=== PATIENT | female | born 1960 | race Caucasian/White ===

== ENCOUNTER → 2018-10-30 12:28 | Outpatient (CLI) | payer MEDICARE, MEDICAID ==
[2013-02-16 13:08] VITALS: BMI 66.2
--- NOTE | ~2018-10-30 | HEMODYNAMI ---
PATIENT:KALANI MONTAGUE MEDICAL RECORD: [id number] : 62 LOCATION:[facility] ADMISSION DATE: 10/30/18 Generatedon:10/30/201814:33 Patient name: KALANI MONTAGUE Patient #: [id number] SSN: : 1960 Date of study: 10/30/2018 Page: Of Hemodynamic Procedure Report Patient Data Patient Demographics Procedure consent was obtained First Name: KALANI Gender: Female Last Name: CLARI : 1960 [facility] Initial: MATTEO Age: 57 year(s) Patient #: [id number] Race: Unknown Additional ID: [id number] Contact details [address]: [address] [place] [address] State: [place] City: [place] Zip code: [address] Past Medical History Allergies: No known allergies Admission Admission Data Admission Date: 10/30/2018 Admission Time: 12:28 Procedure Procedure Types Cath Procedure Peripheral Cath Diagnostic Procedure Miscellaneous Aspiration/Injection (Joint) Procedure Description Procedure Date Procedure Date: 10/30/2018 Procedure Start Time: 14:00 Procedure Staff Name Function Fer Tanner RT Monitor Elmer Gary MD Performing Physician Jeimy Kurtz RN Nurse Procedure Data Cath Procedure Fluoroscopy Diagnostic fluoroscopy Total fluoroscopy Time: 2.8 time: 2.8 min min Diagnostic fluoroscopy Total fluoroscopy dose: 76 dose: 76 mGy mGy Hemodynamics Rest Pre Cath Intra NCS Post Cath Procedure Log Time Note 13:30:30 Fer Tanner RT (R) (CV) sent for patient. Start room use. 13:30:42 Patient received from Outpatients to IR Alert and oriented. Tansferred to table in Supine position. 13:30:43 Correct patient and procedure confirmed by team. 13:30:45 Signed procedure consent form obtained from patient. 13:30:46 Full Disclosure recording started 13:30:48 - 13:30:49 Pre-op teaching completed and patient verbalized understanding. 13:30:49 Pre-procedure instructions explained to patient. 13:36:50 Patient allergic to No known allergies 13:36:57 Is patient on blood thinner?No 13:56:20 Physician arrived 14:00:04 --------ALL STOP TIME OUT------ 14:00:05 Final Timeout: patient, procedure, and site verified with staff and physician. All members of the team are in agreement. 14:00:06 Right groin site verified by team. 14:00:16 Sedation plan: Local Anesthetic Medication:Lidocaine 14:00:25 Procedure started. 14:00:32 Local anesthetic to right groin with Lidocaine 1% by Elmer Gary MD.INITIAL ACCESS ONLY 14:00:56 SAFE-T PLUS MYELOGRAM TRAY opened to sterile field. 14:07:42 CHIBA 22 X 15 needle opened to sterile field. 14:14:33 Procedure ended.(Physican Out) 14:14:45 Fluoroscopy time 02.80 minutes. 14:14:50 Fluoroscopy dose: 76 mGy 14:14:50 Flurop Dose total: 76 14:17:28 Post Right Hip:stable. band aid applied, patient sent home 14:31:09 Full Disclosure recording stopped Device Usage Item Name Manufacture Quantity Catalog Hospital Part Current Minimal Lot# / Number Charge Number Stock Stock Serial# Code SAFE-T [employer] 1 [id number] PLUS MYELOGRAM TRAY CHIBA 22 [facility] 1 [id number] 5 X 15 needle Signature Audit [place] Stage Time Signature Unsigned Intra-Procedure 10/30/2018 Fer 2:33:02 PM Flores RT (R) (CV) Signatures Monitor : Fer Signature : Flores RT Date : Time : [id number] [place] [address]
[~2018-10-30 12:28] MED LIST: CELEXA40 MG PO; CLONAZEPAM0.5 MG/TAB PO; COREG12.5 MG PO; EFFEXOR37.5 MG PO; HYZAAR 50-12.51 TAB PO; LASIX40 MG PO; LEVOTHROID25 MCG PO; MICRO-K10 MEQ PO; MOBIC7.5 MG PO; PERCOCET 10/3251 TA1 PO; PRILOSEC20 MG PO; PROVENTIL HFA6.7 GM INH; TUMS500 MG; ZANTAC150 MG PO; ZOCOR20 MG PO
== END | disposition home or self-care (01) ==
LOC: D.SP 12:28 → D.RAD 13:00
PROVIDERS: ATTEND Orthopaedic Surgery
DX: M16.11 Unilateral primary osteoarthritis, right hip (principal); Z01.812 Encounter for preprocedural laboratory examination

== ENCOUNTER 2019-02-05 15:25 | Emergency (ER) | payer MEDICARE, MEDICAID ==
[~2019-02-05] VITALS: Ht 165.1 cm; Wt 160.0 kg
[2019-02-05 15:53] VITALS: Ht 165.1 cm; Wt 160.0 kg
[2019-02-05] MEDS ORDERED: ULTRAM50 MG PO (17:17)
[2019-02-05 18:01] VITALS: BP 182/99
== END 2019-02-05 18:35 | disposition home or self-care (01) ==
LOC: D.ER 15:25
DX: S93.601A Unspecified sprain of right foot, initial encounter (principal); X58.XXXA Exposure to other specified factors, initial encounter; Y93.89 Activity, other specified; Y92.89 Other specified places as the place of occurrence of the external cause; M79.671 Pain in right foot

== ENCOUNTER 2020-02-05 23:14 | Inpatient (IN) | payer MEDICARE, MEDICAID ==
[~2020-02-05] VITALS: Ht 165.1 cm; Wt 162.4 kg
[~2020-02-05 23:14] MED LIST changes: +ULTRAM50 MG PO
[2020-02-05] MEDS ORDERED: PROZAC20 MG PO (23:28)
[2020-02-05] MEDS ORDERED: SYNTHROID75 MCG PO (23:29)
[2020-02-05] MEDS ORDERED: SYNTHROID50 MCG PO (23:29)
[2020-02-05] MEDS ORDERED: XARELTO10 MG PO (23:30)
[2020-02-05 23:46] LABS: HEMATOCRIT 45.2 % (36.0-48.0); HEMOGLOBIN 13.6 g/dL (12-16); LYMPHOCYTES 11.5 % (15-50); MCH 28.3 pg (26.0-34.0); MCHC 30.1 g/dL (31.0-37.0); MCV 94.2 fL (80.0-100.0); MEAN PLATELET VOLUME 10.3 fL (7.4-10.4); NEUTROPHILS 81.3 % (40-80); PLATELET COUNT 145 10x3/uL (130-400); RDW 15.1 % (11.5-14.5); WBC 5.5 10x3/uL (4.8-10.8)
[2020-02-05 23:55] LABS: APTT 25.9 SECONDS (22.8-39.4); INR 1.06 (0.85-1.17); PROTIME 13.7 SECONDS (11.6-15.0)
[2020-02-06 00:14] LABS: ALBUMIN 2.7 g/dL (3.4-5.0); ALKALINE PHOSPHATASE 51 U/L (30-120); ALT (SGPT) 10 U/L (10-68); BILIRUBIN - TOTAL 0.93 mg/dL (0.2-1.3); CALC OSMOLALITY 287 mosm/kg (275-300); CALCIUM 8.7 mg/dL (8.5-10.1); CARBON DIOXIDE 39.5 mmol/L (21.0-32.0); CHLORIDE - SERUM 104 mmol/L (98-107); CKMB 0.8 U/L (0.0-3.6); CREATINE KINASE 30 UL (21-215); CREATININE - SERUM 0.9 mg/dL (0.6-1.3); GLUCOSE 106 mg/dL (74-106); POTASSIUM - SERUM 4.3 mmol/L (3.5-5.1); PRO BNP 1046 pg/mL (0-125); SODIUM 145 mmol/L (136-145); TROPONIN-I < 0.017 ng/mL (0.000-0.060); UREA NITROGEN 10 mg/dL (7-18); eGFR NON AFRICAN AMERICAN 68 mL/min (90-120)
[2020-02-06 00:28] LABS: C-REACTIVE PROTEIN 0.2 mg/dL (0.0-0.9); MAGNESIUM - SERUM 1.8 mg/dL (1.8-2.4); THYROID STIMULATING HORMONE 3.69 uIU/mL (0.36-3.74); TROPONIN-I 0.018 ng/mL (0.000-0.060)
[2020-02-06 03:41] VITALS: BP 129/99
[2020-02-06 04:22] VITALS: BP 136/64; BMI 59.7
[2020-02-06 07:11] LABS: BILIRUBIN NEGATIVE (NEGATIVE); KETONE SMALL mg/dL (NEGATIVE); NITRITE NEGATIVE (NEGATIVE); UROBILINOGEN NORMAL (NORMAL)
[2020-02-06 07:12] LABS: BACTERIA MANY /hpf (NONE SEEN); WHITE CELLS - URINE 0-5 /hpf (0-5)
[2020-02-06 07:15] LABS: AMORPHOUS SEDIMENT <1+ /lpf (NONE SEEN); URIC ACID CRYSTALS FEW \\hpf (NONE SEEN)
[2020-02-06 09:03] VITALS: BP 120/60
[2020-02-06 12:16] LABS: BASOPHILS 0.2 % (0-2); EOSINOPHILS 1.2 % (0-7); HEMATOCRIT 45.4 % (36.0-48.0); HEMOGLOBIN 13.6 g/dL (12-16); IMMATURE GRANULOCYTES 0.2 % (0-5); LYMPHOCYTES 9.2 % (15-50); MCH 28.7 pg (26.0-34.0); MCV 95.8 fL (80.0-100.0); MEAN PLATELET VOLUME 10.7 fL (7.4-10.4); NEUTROPHILS 82.2 % (40-80); PLATELET COUNT 171 10x3/uL (130-400); RBC 4.74 10x6/uL (4.00-5.40); RDW 15.8 % (11.5-14.5)
--- NOTE | 2020-02-06 12:44 | NUR ---
SPOKE WITH LAB AND THEY STATED THEY WILL USE URINE FROM THIS AM FOR CULTURE.
[2020-02-06 12:53] VITALS: BP 101/52
--- NOTE | 2020-02-06 14:15 | NUR ---
DISPLAY MAKER CALLED AND STATES PT'S HR IS 53 SINUS SIENNA. CALLED AND SPOKE WITH LORRAINE MARROQUIN AND SHE STATES TO PLACE A CARDIOLOGY CONSULT FOR SYMPTOMATIC BRADYCARDIA. I VERBALZIED UNDERSTANDING.
--- NOTE | 2020-02-06 16:30 | NUR ---
PT LYING IN BED. EYES CLSOED. CHEST RISING AND FALLING. BED LOW. CL IN REACH. WILL CONTINUE WITH POC.
[2020-02-06 17:31] VITALS: BP 96/54
--- NOTE | 2020-02-06 19:15 | NUR ---
PATIENT ALERT AND ORIENTED WEARING NASAL CANNULA AT 4L. HOB ELEVATED. CHECKED ROCHE CATHETER BAG, EMPTY. PULLED COVERS BACK AND PATIENT SATURATED WITH URINE. PULLED ROCHE CATHETER AND REPLACED WITH URINE RETURN AND DRAINING INTO BAG. BED BATH PERFORMED. BOUDREAUXS APPLIED TO THIGHS AND OTHER PREVIOUSLY EXCORIATED AREAS (SEE ADMIN ASSESSMENT). PATIENT TOLERATED WELL. DENIES NEEDS AT THIS TIME. CALL LIGHT CLOSE. BED ALARM ON. CPOC.
--- NOTE | 2020-02-06 23:16 | NUR ---
RESTING WITH NO SIGNS OR SYMPTOMS OF DISTRESS. NASAL CANNULA REMAINS ON. RESPIRATORY THERAPIST AWARE THAT PATIENT WEARING CANNULA NOT BIPAP.
[2020-02-06 23:19] VITALS: BP 125/62
[2020-02-07 03:24] VITALS: BP 146/82
[2020-02-07 05:35] LABS: BASOPHILS 0.2 % (0-2); EOSINOPHILS 2.3 % (0-7); HEMATOCRIT 41.5 % (36.0-48.0); HEMOGLOBIN 12.5 g/dL (12-16); LYMPHOCYTES 11.5 % (15-50); MCH 28.5 pg (26.0-34.0); MCHC 30.1 g/dL (31.0-37.0); MCV 94.7 fL (80.0-100.0); MEAN PLATELET VOLUME 10.3 fL (7.4-10.4); PLATELET COUNT 137 10x3/uL (130-400); RBC 4.38 10x6/uL (4.00-5.40); RDW 15.8 % (11.5-14.5); WBC 4.4 10x3/uL (4.8-10.8)
[2020-02-07 06:03] LABS: ALBUMIN 2.3 g/dL (3.4-5.0); ANION GAP 4.9 mmol/L (8-16); BILIRUBIN - TOTAL 0.79 mg/dL (0.2-1.3); CALCIUM 8.3 mg/dL (8.5-10.1); CARBON DIOXIDE 37.9 mmol/L (21.0-32.0); CREATININE - SERUM 0.9 mg/dL (0.6-1.3); MAGNESIUM - SERUM 1.7 mg/dL (1.8-2.4); POTASSIUM - SERUM 3.8 mmol/L (3.5-5.1)
[2020-02-07 06:40] VITALS: BP 121/61
--- NOTE | 2020-02-07 07:10 | NUR ---
RECEIVED PATIENT FROM BRIANA SIGALA. A&O RESTING IN BED WITH EYES OPEN. NO C/O PAIN. NO S/S OF ACUTE DISTRESS NOTED. DENIES ANY NEEDS AT THIS TIME. CALL LIGHT IN REACH. WILL CONTINUE TO MONITOR.
[2020-02-07 09:22] VITALS: BP 121/63
[2020-02-07 09:33] VITALS: Ht 165.1 cm; Wt 162.4 kg
--- NOTE | 2020-02-07 12:35 | NUR ---
OT NOTE: PT IS PUI FOR COVID. WILL AWAIT TEST RESULTS BEFORE EVALUATION. IRMA THOMAS, OTR/L
[2020-02-07 13:05] VITALS: BP 105/57
--- NOTE | 2020-02-07 14:55 | NUR ---
I have reviewed this patient and I concur with the Shift Assessment completed by the Licensed Practical Nurse today this shift.
[2020-02-07 17:54] VITALS: BP 127/69
--- NOTE | 2020-02-07 18:29 | NUR ---
A&O RESTING IN BED WITH EYES OPEN. NO C/O PAIN. NO S/S OF ACUTE DISTRESS NOTED. DENIES ANY NEEDS AT THIS TIME. CALL LIGHT IN REACH. WILL CONTINUE TO MONITOR.
--- NOTE | 2020-02-07 19:00 | NUR ---
PATIENT ALERT AND ORIENTED, HOB ELEVATED, WATCHING TV WHEN ENTERING THE ROOM. PATIENT NOT WEARING BIPAP AT THIS TIME, RT AWARE, PATIENT CURRENTLY WEARING NC AT 4L. PATIENT HAS NON LABORED RESPIRATIONS. ASSESSMENT PERFORMED. ROCHE PATENT AND DRAINING HELEN URINE. ANSWERED PATIENT QUESTIONS. DENIES FURTHER NEEDS AT THIS TIME. CALL LIGHT IS CLOSE. BED ALARM IS ON. CPOC.
[2020-02-07 20:00] VITALS: BP 92/41
--- NOTE | 2020-02-07 22:45 | NUR ---
ANSWERED PATIENT CALL LIGHT. STATES SHE IS GOING TO SLEEP AND WOULD LIKE ASSISTANCE WITH BIPAP. ASSISTED PATIENT. RESTING WITH EXITING THE ROOM. CALL LIGHT CLOSE. BED ALARM ON. CPOC.
[2020-02-08] VITALS: BP 117/59
[2020-02-08 04:00] VITALS: BP 132/70
[2020-02-08 06:43] LABS: BASOPHILS 0.3 % (0-2); EOSINOPHILS 2.2 % (0-7); HEMATOCRIT 40.9 % (36.0-48.0); HEMOGLOBIN 12.3 g/dL (12-16); MCH 28.1 pg (26.0-34.0); MCHC 30.1 g/dL (31.0-37.0); MCV 93.4 fL (80.0-100.0); MEAN PLATELET VOLUME 10.5 fL (7.4-10.4); MONOCYTES 9.2 % (2-11); NEUTROPHILS 69.3 % (40-80); PLATELET COUNT 150 10x3/uL (130-400); RBC 4.38 10x6/uL (4.00-5.40); RDW 16.1 % (11.5-14.5); WBC 3.7 10x3/uL (4.8-10.8)
[2020-02-08 07:02] LABS: ALBUMIN 2.4 g/dL (3.4-5.0); ANION GAP 6.1 mmol/L (8-16); BILIRUBIN - TOTAL 0.54 mg/dL (0.2-1.3); CALCIUM 7.9 mg/dL (8.5-10.1); CARBON DIOXIDE 39.9 mmol/L (21.0-32.0); CREATININE - SERUM 1.1 mg/dL (0.6-1.3); PROTEIN - SERUM 5.6 g/dL (6.4-8.2)
[2020-02-08 08:55] VITALS: BP 135/76
[2020-02-08 09:51] LABS: MAGNESIUM - SERUM 1.7 mg/dL (1.8-2.4); PHOSPHOROUS 3.4 mg/dL (2.5-4.9)
[2020-02-08 13:19] VITALS: BP 102/50
[2020-02-08 17:06] VITALS: BP 106/59
[2020-02-08 20:00] VITALS: BP 101/44
[2020-02-09] VITALS: BP 136/63
--- NOTE | 2020-02-09 03:59 | NUR ---
I have reviewed this patient and I concur with the Shift Assessment completed by the Licensed Practical Nurse today this shift.
[2020-02-09 04:00] VITALS: BP 124/60
[2020-02-09 05:00] LABS: BASOPHILS 0.3 % (0-2); EOSINOPHILS 1.9 % (0-7); HEMOGLOBIN 12.7 g/dL (12-16); IMMATURE GRANULOCYTES 0.3 % (0-5); LYMPHOCYTES 17.2 % (15-50); MCHC 30.2 g/dL (31.0-37.0); MCV 92.5 fL (80.0-100.0); MEAN PLATELET VOLUME 10.8 fL (7.4-10.4); MONOCYTES 11.3 % (2-11); PLATELET COUNT 146 10x3/uL (130-400); RBC 4.54 10x6/uL (4.00-5.40); RDW 16.2 % (11.5-14.5); WBC 3.7 10x3/uL (4.8-10.8)
[2020-02-09 05:33] LABS: ALBUMIN 2.4 g/dL (3.4-5.0); ANION GAP 8.8 mmol/L (8-16); BILIRUBIN - TOTAL 0.71 mg/dL (0.2-1.3); CALCIUM 8.3 mg/dL (8.5-10.1); CARBON DIOXIDE 36.7 mmol/L (21.0-32.0); CREATININE - SERUM 0.9 mg/dL (0.6-1.3); POTASSIUM - SERUM 3.5 mmol/L (3.5-5.1); PROTEIN - SERUM 6.3 g/dL (6.4-8.2)
--- NOTE | 2020-02-09 06:45 | NUR ---
A&O RESTING IN BED WITH EYES OPEN. NO C/O PAIN. NO S/S OF ACUTE DISTRESS NOTED. ON 4L O2, NC. IV TO LEFT AC, SL. SITE PATENT WITHOUT REDNESS OR SWELLING. ON TELEMETRY SB 56. ON BEDREST. ROCHE CATHETER PRESENT. YEAST IN ALL ABDOMINAL FOLDS AND GROIN AREA. DENIES ANY NEEDS AT THIS TIME. CALL LIGHT IN REACH. WILL CONTINUE TO MONITOR.
[2020-02-09 09:18] VITALS: BP 131/70
[2020-02-09 12:27] VITALS: BP 117/62
--- NOTE | 2020-02-09 12:40 | NUR ---
I have reviewed this patient and I concur with the Shift Assessment completed by the Licensed Practical Nurse today this shift.
--- NOTE | 2020-02-09 14:23 | NUR ---
Nutrition follow-up: Pt receiving a low sodium diet with po intake ~60% of meals Labs reviewed Wt: 358# Pt supposed to wear BIPAP PO intake fair at this time No BM charted since admit; recommend a stool softener RDN following.
[2020-02-09 18:01] VITALS: BP 124/74
--- NOTE | 2020-02-09 18:38 | NUR ---
A&O RESTING IN BED WITH EYES OPEN. NO C/O PAIN. NO S/S OF ACUTE DISTRESS NOTED. CALL LIGHT IN REACH. DENIES ANY NEEDS. WILL CONTINUE TO MONITOR.
[2020-02-09 20:00] VITALS: BP 91/40
[2020-02-10] VITALS (7 sets, daily range): BP systolic 85–126; BP diastolic 44–62
--- NOTE | 2020-02-10 02:34 | NUR ---
I have reviewed this patient and I concur with the Shift Assessment completed by the Licensed Practical Nurse today this shift.
[2020-02-10 06:20] LABS: BASOPHILS 0.3 % (0-2); EOSINOPHILS 2.4 % (0-7); HEMATOCRIT 41.6 % (36.0-48.0); HEMOGLOBIN 12.6 g/dL (12-16); LYMPHOCYTES 20.5 % (15-50); MCH 28.4 pg (26.0-34.0); MCHC 30.3 g/dL (31.0-37.0); MCV 93.7 fL (80.0-100.0); MEAN PLATELET VOLUME 11.1 fL (7.4-10.4); MONOCYTES 10.1 % (2-11); NEUTROPHILS 66.7 % (40-80); PLATELET COUNT 146 10x3/uL (130-400); RBC 4.44 10x6/uL (4.00-5.40); RDW 16.1 % (11.5-14.5); WBC 3.8 10x3/uL (4.8-10.8)
[2020-02-10 06:47] LABS: ALBUMIN 2.4 g/dL (3.4-5.0); ANION GAP 5.9 mmol/L (8-16); BILIRUBIN - TOTAL 0.47 mg/dL (0.2-1.3); CALCIUM 8.2 mg/dL (8.5-10.1); CREATININE - SERUM 1.1 mg/dL (0.6-1.3); POTASSIUM - SERUM 3.9 mmol/L (3.5-5.1); PROTEIN - SERUM 6.3 g/dL (6.4-8.2)
--- NOTE | 2020-02-10 08:22 | NUR ---
PT EASILY AWAKENED TO DO SHIFT ASSESSMENT. ALERT AND ORIENTED. CO OF PAIN AN EIGHT OUT OF TEN ON THE PAIN SCALE. REPORTS NOT HAVING A BOWEL MOVEMENT FOR 7 DAYS. NO NEEDS AT THIS TIME. WCTM
--- NOTE | 2020-02-10 11:03 | NUR ---
PT AWAKE AND SITTING UP WITH THE BED. NO NEEDS AT THIS TIME. MEDS GIVEN PER EMAR. CL IN REACH. WCTM
--- NOTE | 2020-02-10 15:33 | NUR ---
PT SLEEPING. NO NEEDS AT THIS TIME. WCTM
[2020-02-11 04:00] VITALS: BP 110/62
[2020-02-11 04:52] LABS: BASOPHILS 0.2 % (0-2); EOSINOPHILS 2.5 % (0-7); HEMOGLOBIN 12.3 g/dL (12-16); IMMATURE GRANULOCYTES 0.2 % (0-5); LYMPHOCYTES 21.5 % (15-50); MCH 28.1 pg (26.0-34.0); MCV 93.8 fL (80.0-100.0); MEAN PLATELET VOLUME 11.5 fL (7.4-10.4); MONOCYTES 9.1 % (2-11); NEUTROPHILS 66.5 % (40-80); PLATELET COUNT 140 10x3/uL (130-400); RBC 4.37 10x6/uL (4.00-5.40); RDW 15.8 % (11.5-14.5); WBC 4.4 10x3/uL (4.8-10.8)
[2020-02-11 05:10] LABS: ALBUMIN 2.4 g/dL (3.4-5.0); ANION GAP 2.9 mmol/L (8-16); BILIRUBIN - TOTAL 0.38 mg/dL (0.2-1.3); CALCIUM 7.8 mg/dL (8.5-10.1); CARBON DIOXIDE 39.2 mmol/L (21.0-32.0); CREATININE - SERUM 1.1 mg/dL (0.6-1.3); MAGNESIUM - SERUM 1.9 mg/dL (1.8-2.4); POTASSIUM - SERUM 4.1 mmol/L (3.5-5.1); PROTEIN - SERUM 6.1 g/dL (6.4-8.2)
[2020-02-11 06:11] LABS: IMMUNOGLOBULIN E 69 IU/mL (6-495)
--- NOTE | 2020-02-11 07:42 | NUR ---
PT SLEEPING AT THIS TIME. BED ALARM ON. NO NEEDS AT THIS TIME. TM
[2020-02-11 09:07] VITALS: BP 108/54
--- NOTE | 2020-02-11 11:21 | NUR ---
PT CO OF SEVERE RIGHT HIP/LEG PAIN. PHYSICAL THERAPY STATED SHE COULDN'T EVEN HANDLE PASSIVE RANGE OF MOTION WITHOUT EXCRUTIATING PAIN. PAGING DIRECTOR OF DEVELOPMENT AND MARKETING DOCTOR TO SEE IF WE CAN GET IMAGING. CL IN REACH. BED ALARM ON. WCTM
[2020-02-11 12:31] VITALS: BP 114/59
--- NOTE | 2020-02-11 13:07 | NUR ---
OT NOTE: ATTEMPTED TO PERFORM PROM TO R LE, HOWEVER, WITH ONLY MINIMAL KNEE AND HIP FLEX, PT BEGAN CRYING IN PAIN. SHE CONTINUES TO REPORT THAT IT WAS NOT LIKE THIS PRIOR TO ADMISSION. SHE REPORTS THAT HER R LE WAS WEAK AND HAD SOME PAIN, BUT NOW SHE IS UNABLE TO TOLERATE IT BEING MOVED. PT ABLE TO ACTIVELY PERFORM PLANTAR AND DORSIE FLEXION OF R ANKLE, BUT CAN NOT TOLERATE MOVEMENT OF R HIP IN ANY PLAIN..FLEX/EXT/ABD/ADD. INFORMED NURSING IRMA THOMAS, OTR/L [phone]
[2020-02-11 14:11] LABS: PROCALCITONIN 0.04 ng/mL (0.00-0.08)
[2020-02-11 17:02] VITALS: BP 165/92
[2020-02-11 17:31] VITALS: BP 100/52
[2020-02-11 22:24] VITALS: BP 84/41
[2020-02-12 01:13] VITALS: BP 89/34
--- NOTE | 2020-02-12 03:31 | NUR ---
ASSESSED AT THE BEGINNING OF SHIFT. PT IS ALERT AND ORIENTED, ABLE TO VERBALIZE NEEDS. SHE IS NOT ABLE TO GET OUT OF BED DUE TO A PAINFUL HIP ABUT IS VERY PLEASANT AND COOPERATIVE. SHE WEARS O2 DURING THE DAY BUT HAS BIPAP AT NIGHT. TELEMETRY IS IN PLACE AND SHOWS A NORMAL SINUS RHYTHM. HER ROCHE HAS CLEAR HELEN FLUIDS.
[2020-02-12 06:14] VITALS: BP 111/62
[2020-02-12 06:31] LABS: BASOPHILS 0.3 % (0-2); EOSINOPHILS 3.3 % (0-7); HEMATOCRIT 41.7 % (36.0-48.0); HEMOGLOBIN 12.4 g/dL (12-16); IMMATURE GRANULOCYTES 0.3 % (0-5); LYMPHOCYTES 17.6 % (15-50); MCH 28.1 pg (26.0-34.0); MCHC 29.7 g/dL (31.0-37.0); MCV 94.6 fL (80.0-100.0); MEAN PLATELET VOLUME 12.1 fL (7.4-10.4); MONOCYTES 9.6 % (2-11); NEUTROPHILS 68.9 % (40-80); PLATELET COUNT 128 10x3/uL (130-400); RBC 4.41 10x6/uL (4.00-5.40); RDW 15.5 % (11.5-14.5)
[2020-02-12 07:09] LABS: CALC OSMOLALITY 274 mosm/kg (275-300); CALCIUM 8.1 mg/dL (8.5-10.1); CARBON DIOXIDE 37.3 mmol/L (21.0-32.0); CHLORIDE - SERUM 99 mmol/L (98-107); GLUCOSE 78 mg/dL (74-106); MAGNESIUM - SERUM 2.1 mg/dL (1.8-2.4); POTASSIUM - SERUM 4.5 mmol/L (3.5-5.1); SODIUM 137 mmol/L (136-145); UREA NITROGEN 17 mg/dL (7-18); eGFR NON AFRICAN AMERICAN 78 mL/min (90-120)
[2020-02-12 07:19] LABS: CREATININE - SERUM 0.8 mg/dL (0.6-1.3)
[2020-02-12 09:50] VITALS: BP 88/55
--- NOTE | 2020-02-12 11:05 | NUR ---
RESTING IN BED, NO DISTRESS NOTED, SL TO LAC, ROCHE TO GRAVITY,O2 PER NC, CONT TO MONITOR
[2020-02-12 13:12] VITALS: BP 89/50
--- NOTE | 2020-02-12 14:55 | NUR ---
PATIENT REFUSED MRI AFTER TRANSPORTED TO MRI SCAN TABLE. PATIENT STATED SHE COULD NOT BREATH AND FELT LIKE SHE WAS GOING TO FALL OFF OF THE SCAN TABLE. NOTIFIED CHARGE NURSE [place] THAT PATIENT REFUSED.
[2020-02-12 16:00] VITALS: BP 93/46
--- NOTE | 2020-02-12 19:34 | NUR ---
PATIENT RESTING IN BED WITH NO S/S OF DISTRESS AND DENIES NEEDS AT THIS TIME. BED IN LOWEST POSITION AND CALL LIGHT WITHIN REACH. ENCOURAGED THE PATIENT TO CALL IF SHE HAS NEEDS. WILL CONTINUE TO MONITOR.
--- NOTE | 2020-02-12 20:38 | NUR ---
ADMINISTERED MEDS PER ORDERS. PATIENT DENIES OTHER NEEDS. WILL CONTINUE TO MONITOR.
[2020-02-12 21:14] VITALS: BP 86/37
[2020-02-13 01:21] VITALS: BP 102/47
[2020-02-13 06:05] LABS: BASOPHILS 0.3 % (0-2); EOSINOPHILS 2.9 % (0-7); HEMATOCRIT 41.1 % (36.0-48.0); HEMOGLOBIN 12.4 g/dL (12-16); LYMPHOCYTES 19.7 % (15-50); MCH 28.4 pg (26.0-34.0); MCHC 30.2 g/dL (31.0-37.0); MCV 94.3 fL (80.0-100.0); MEAN PLATELET VOLUME 12.1 fL (7.4-10.4); MONOCYTES 8.3 % (2-11); NEUTROPHILS 68.8 % (40-80); PLATELET COUNT 127 10x3/uL (130-400); RBC 4.36 10x6/uL (4.00-5.40); RDW 15.4 % (11.5-14.5); WBC 3.9 10x3/uL (4.8-10.8)
[2020-02-13 06:17] VITALS: BP 97/45
[2020-02-13 06:29] LABS: ANION GAP 4.7 mmol/L (8-16); CALCIUM 8.6 mg/dL (8.5-10.1); CARBON DIOXIDE 38.6 mmol/L (21.0-32.0); CREATININE - SERUM 0.9 mg/dL (0.6-1.3); MAGNESIUM - SERUM 2.2 mg/dL (1.8-2.4); POTASSIUM - SERUM 4.3 mmol/L (3.5-5.1)
--- NOTE | 2020-02-13 07:45 | NUR ---
RESTING IN BED, NO DISTRESS NOTED, EYES CLOSED, ROCHE TO GRAVITY, CONT TO MONITOR PAIN
[2020-02-13 08:00] VITALS: BP 105/48
[2020-02-13 12:18] VITALS: BP 109/50
[2020-02-13] MEDS ORDERED: COLACE100 MG PO (15:47)
[2020-02-13] MEDS ORDERED: MIRALAX17 GM PO (15:47)
[2020-02-13] MEDS ORDERED: MOBIC7.5 MG PO (15:49)
--- NOTE | 2020-02-13 16:18 | MORECARE ---
CASE MANAGEMENT DISCHARGE SUMMARY PATIENT: KALANI MONTAGUE UNIT: [id number] ADM DATE: 02/06/20 AGE: 59 : 62 SEX: F ROOM/BED: D.2213 AUTHOR: RODOLFO JUAREZ PHYSICIAN: REFERRING PHYSICIAN: MARIETTA ROSENTHAL MD DATE OF SERVICE: 02/13/20 Discharge Plan Patient Name: KALANI MONTAGUE Facility: [facility]:[place] : 1960 Planned Disposition: Home Anticipated Discharge Date: 02/13/20 Discharge Date: Expected LOS: 7 Initial Reviewer: [email or web address] Initial Review Date: 02/13/2020 Generated: 02/13/20 5:17 pm Patient Name: KALANI MONTAGUE Page [phone] at 1618 All edits/amendments must be made on the electronic document DICTATION DATE: 02/13/20 161 DIRECTOR CHEMISTRY: TERRY 02/13/20 161 RPT#: [id number] DC DATE: STATUS: ADM IN [facility] [address] [place] [address] END OF REPORT
[2020-02-13 16:26] VITALS: BP 80/40
--- NOTE | 2020-02-13 16:44 | MORECARE ---
CASE MANAGEMENT DISCHARGE SUMMARY PATIENT: KALANI MONTAGUE UNIT: [id number] ADM DATE: 02/06/20 AGE: 59 : 62 SEX: F ROOM/BED: D.2213 AUTHOR: RODOLFO JUAREZ PHYSICIAN: REFERRING PHYSICIAN: MARIETTA ROSENTHAL MD DATE OF SERVICE: 02/13/20 Discharge Plan Patient Name: KALANI MONTAGUE Facility: [facility]:[place] : 1960 Planned Disposition: Home Anticipated Discharge Date: 02/13/20 Discharge Date: Expected LOS: 7 Initial Reviewer: [email or web address] Initial Review Date: 02/13/2020 Generated: 02/13/20 5:43 pm Last DP export: 02/13/20 3:18 p Patient Name: KALANI MONTAGUE Page [phone] at 1644 All edits/amendments must be made on the electronic document DICTATION DATE: 02/13/201642 STARCH CRAB: TERRY 02/13/201642 RPT#: [id number] DC DATE: STATUS: ADM IN [facility] [address] [place] [address] END OF REPORT
--- NOTE | 2020-02-13 17:23 | MORECARE ---
CASE MANAGEMENT DISCHARGE SUMMARY PATIENT: KALANI MONTAGUE UNIT: [id number] ADM DATE: 02/06/20 AGE: 59 : 62 SEX: F ROOM/BED: D.2213 AUTHOR: RODOLFO JUAREZ PHYSICIAN: REFERRING PHYSICIAN: MARIETTA ROSENTHAL MD DATE OF SERVICE: 02/13/20 Discharge Plan Patient Name: KALANI MONTAGUE Facility: [facility]:[place] : 1960 Planned Disposition: Home Anticipated Discharge Date: 02/13/20 Discharge Date: Expected LOS: 7 Initial Reviewer: [email or web address] Initial Review Date: 02/13/2020 Generated: 02/13/20 6:22 pm Comments DCP- Discharge Planning Updated by [email or web address]: J Luis Amos on 02/13/20 4:[address] Patient Name: KALANI MONTAGUE Admission Status: ER Accout number: [id number] Admission Date: 02-06-2020 : 1960 Admission Diagnosis:SHORTNESS OF BREATH Attending: PATRICIA ROSENTHAL Current LOS: 7 Anticipated DC Date: 02-13-2020 Planned Disposition: Home Primary Insurance: [facility] MEDICARE SOLUTIONS Discharge Planning Comments: CM met with patient to complete initial dc planning assessment. CM educated patient on the CM role and verbal consent given by patient to speak with her daughter Renee Montague at [phone] and to complete assessment. CM verified patient's address, phone number, and emergency contact phone numbers. Patient lives at Home with her daughter Renee and states that Renee helps her stand and from that position she is able to safely walk with her walker. Patient further stated that she has a BSC and is able to shift her weight and body safely from sitting position to BSC. Patient stated that she has a shower chair and is able to safely bathe with minimal assistance from her daughter. Patient states that she has strong family support and does not require any supplemental assistance. At discharge patient plans to return home and feels this is a safe discharge. Patient is partially dependent and has ADL needs of standing assistance and ambulation assistance. CM discussed availability of home health, rehab services, and medical equipment. Patient declined HH, SNF, IPR, and DME at this time. Patient states that her daughter and family can provide all the help she needs. Informed patient that should she change her mind she can coordinate with her PCP Dr. Camp to set up HH or for rehabilitation needs. It is noted that patient is currently on 2L O2. Walk Test warrants O2. Home oxygen coordinated with [facility]. No other discharge needs requested. Transportation provider at discharge will be home with her daughter, Renee Montague. CM will continue to follow and will assist as needed with dc plans/needs. Piercer: J Luis Amos External Providers External Provider: Carri Next Contact Date: Service Request Date: Service Type: Resolution: Reviewer: Comments: Coverage Notice Reviewer: [email or web address] Colten Amos Notice Issued Date-Time: 02/13/2020 15:45 Notice Type: IM Discharge Notice Notice Delivered To: Patient Relationship to Patient: Educational Administrator Name: Delivery Method: HAND - Hand Delivered Nadege Days: Prior Verbal Notification: Recipient Understood Notice: Yes Recipient Signature: Yes Med Rec Note Co-signed by Attending: Coverage Notice Comment: IMM explained, understood, signed, copied and given to patient. Placed on chart. Reviewer: [id number] Colten Amos Notice Issued Date-Time: 02/13/2020 15:45 Notice Type: Patient Choice Letter Notice Delivered To: Patient Relationship to Patient: Educational Administrator Name: Delivery Method: HAND - Hand Delivered Nadege Days: Prior Verbal Notification: Recipient Understood Notice: Yes Recipient Signature: Yes Med Rec Note Co-signed by Attending: Coverage Notice Comment: Patient refused IPR, SNF, HH Last DP export: 02/13/20 3:44 p Patient Name: KALANI MONTAGUE Page [phone] at 1723 All edits/amendments must be made on the electronic document DICTATION DATE: 02/13/201721 VENDOR SPECIALIST: TERRY 02/13/201721 RPT#: [id number] DC DATE: STATUS: ADM IN [facility] [address] [place] [address] END OF REPORT
--- NOTE | 2020-02-13 18:30 | NUR ---
PT TO D/C HOME, IV REMOVED, TIP INTACT, MEDS LOCKED IN PHARMACY, PT WILL CALL TOMORROW TO WORK OUT A WAY TO GET HER MEDS, O2 DELIVERED HERE BY [facility] FOR PT TRANSPORT
--- NOTE | 2020-02-13 18:45 | NUR ---
AMBULANCE CALLED FOR TRANSFER TO HOME
--- NOTE | 2020-02-13 21:38 | NUR ---
PATIENT D/C'D VIA [employer]. PATIENT HAD NO S/S OF DISTRESS WHEN DISCHARGED.
--- NOTE | 2020-02-14 08:20 | MORECARE ---
CASE MANAGEMENT DISCHARGE SUMMARY PATIENT: KALANI MONTAGUE UNIT: [id number] ADM DATE: 02/06/20 AGE: 59 : 62 SEX: F ROOM/BED: D.2213 AUTHOR: RODOLFO JUAREZ PHYSICIAN: REFERRING PHYSICIAN: MARIETTA ROSENTHAL MD DATE OF SERVICE: 02/14/20 Discharge Plan Patient Name: KALANI MONTAGUE Facility: [facility]:[place] : 1960 Planned Disposition: Home Anticipated Discharge Date: 02/13/20 Discharge Date: 02/13/2020 Expected LOS: 7 Initial Reviewer: [email or web address] Initial Review Date: 02/13/2020 Generated: 02/14/20 9:20 am Comments DCP- Discharge Planning Updated by [id number]: J Luis Amos on 02/13/20 4:[address] Patient Name: KALANI MONTAGUE Admission Status: ER Accout number: [id number] Admission Date: 02-06-2020 : 1960 Admission Diagnosis:SHORTNESS OF BREATH Attending: PATRICIA ROSENTHAL Current LOS: 7 Anticipated DC Date: 02-13-2020 Planned Disposition: Home Primary Insurance: [facility] MEDICARE SOLUTIONS Discharge Planning Comments: CM met with patient to complete initial dc planning assessment. CM educated patient on the CM role and verbal consent given by patient to speak with her daughter Renee Montague at [phone] and to complete assessment. CM verified patient's address, phone number, and emergency contact phone numbers. Patient lives at Home with her daughter Renee and states that Renee helps her stand and from that position she is able to safely walk with her walker. Patient further stated that she has a BSC and is able to shift her weight and body safely from sitting position to BSC. Patient stated that she has a shower chair and is able to safely bathe with minimal assistance from her daughter. Patient states that she has strong family support and does not require any supplemental assistance. At discharge patient plans to return home and feels this is a safe discharge. Patient is partially dependent and has ADL needs of standing assistance and ambulation assistance. CM discussed availability of home health, rehab services, and medical equipment. Patient declined HH, SNF, IPR, and DME at this time. Patient states that her daughter and family can provide all the help she needs. Informed patient that should she change her mind she can coordinate with her PCP Dr. Camp to set up HH or for rehabilitation needs. It is noted that patient is currently on 2L O2. Walk Test warrants O2. Home oxygen coordinated with [facility]. No other discharge needs requested. Transportation provider at discharge will be home with her daughter, Renee Montague. CM will continue to follow and will assist as needed with dc plans/needs. Metal Baler: J Luis Amos Coverage Notice Reviewer: [email or web address] Colten Amos Notice Issued Date-Time: 02/13/2020 15:45 Notice Type: IM Discharge Notice Notice Delivered To: Patient Relationship to Patient: Soccer Commentator Name: Delivery Method: HAND - Hand Delivered Nadege Days: Prior Verbal Notification: Recipient Understood Notice: Yes Recipient Signature: Yes Med Rec Note Co-signed by Attending: Coverage Notice Comment: IMM explained, understood, signed, copied and given to patient. Placed on chart. Reviewer: [email or web address] Colten Amos Notice Issued Date-Time: 02/13/2020 15:45 Notice Type: Patient Choice Letter Notice Delivered To: Patient Relationship to Patient: Soccer Commentator Name: Delivery Method: HAND - Hand Delivered Nadege Days: Prior Verbal Notification: Recipient Understood Notice: Yes Recipient Signature: Yes Med Rec Note Co-signed by Attending: Coverage Notice Comment: Patient refused IPR, SNF, HH Last DP export: 02/13/20 4:23 p Patient Name: KALANI MONTAGUE Page [phone] at 0820 All edits/amendments must be made on the electronic document DICTATION DATE: 02/14/20819 TERMINAL BLOCK ASSEMBLER: TERRY 02/14/20819 RPT#: [id number] DC DATE:02/13/20 STATUS: DIS IN [facility] [address] [place] [address] END OF REPORT
== END 2020-02-13 21:38 | disposition home or self-care (01) | DRG 291 ==
LOC: D.ER 23:14 → D.MS 02-06 01:34
PROVIDERS: Family Medicine; Internal Medicine Pulmonary Disease; ADMIT Emergency Medicine; ATTEND Emergency Medicine
DX: I11.0 Hypertensive heart disease with heart failure (principal); J96.02 Acute respiratory failure with hypercapnia; J18.9 Pneumonia, unspecified organism; I50.31 Acute diastolic (congestive) heart failure; J96.01 Acute respiratory failure with hypoxia; J44.0 Chronic obstructive pulmonary disease with (acute) lower respiratory infection; Z68.43 Body mass index [BMI] 50.0-59.9, adult; J98.11 Atelectasis; I25.10 Atherosclerotic heart disease of native coronary artery without angina pectoris; E66.01 Morbid (severe) obesity due to excess calories; E78.5 Hyperlipidemia, unspecified; F32.9 Major depressive disorder, single episode, unspecified; F41.9 Anxiety disorder, unspecified; R51 Headache; R16.1 Splenomegaly, not elsewhere classified; Z79.01 Long term (current) use of anticoagulants; M16.11 Unilateral primary osteoarthritis, right hip